=== PATIENT | female | born 1995 | race Caucasian/White ===

== ENCOUNTER 2020-03-06 14:20 | Emergency (ER) | payer MEDICAID, OTHER ==
[~2020-03-06] VITALS: Ht 165.1 cm; Wt 108.9 kg
[~2020-03-06 14:20] MED LIST: ETHINYL ESTRADIOL PO; NORGESTIMATE PO
--- NOTE | 2020-03-06 14:20 | NUR ---
Patient to ER bed 3 to gown for evaluation. Side rails up.
[2020-03-06 14:38] VITALS: BP_SYST 124
--- NOTE | 2020-03-06 14:55 | NUR ---
Pt came to ER for R hip pain sharp burning pain radiating down leg. Pt states pain is better when she is standing, increases when she sits or lays down. Currently standing at bedside, awaiting MD, no other complaints
--- NOTE | 2020-03-06 15:04 | NUR ---
ER at bedside examining patient.
[2020-03-06] MEDS ORDERED: IBUPROFEN 600 MG TABLET PO ONE (15:30)
--- NOTE | 2020-03-06 15:30 | NUR ---
Administered Motrin PO as ordered by Dr. Bennett. Patient tolerated the medications well. See eMAR for details.
[2020-03-06 15:37] VITALS: BP_SYST 124
--- NOTE | 2020-03-06 15:37 | NUR ---
Patient given written and verbal discharge instructions and verbalizes understanding. ER MD discussed with patient the results and treatment provided. Patient in stable condition. ID arm band removed. Rx of Motrin given. Patient educated on pain management and to follow up with PMD. Pain Scale 3/10. Opportunity for questions provided and answered. Medication side effect fact sheet provided.
== END 2020-03-06 15:37 | disposition home or self-care (01) ==
LOC: SED 14:20
DX: M54.6 Pain in thoracic spine (principal)
CPT/HCPCS: 81002; 81025; 99282

== ENCOUNTER 2020-12-16 18:16 | Emergency (ER) | payer MEDICAID ==
[~2020-12-16] VITALS: Ht 165.1 cm; Wt 113.4 kg
[2020-12-16 18:25] VITALS: BP_SYST 146
--- NOTE | 2020-12-16 18:25 | NUR ---
PT TO BED 7 FOR EVALUATION. REPORT GIVEN TO CARI SAMPSON WHO WILL ASSUME CARE.
--- NOTE | 2020-12-16 18:35 | NUR ---
Pt walked in to ER with c/o abdominal pain 3/10 and multiple episodes of diarrhea x3 days. Denies fever or n/v at this time. V/S stable, no acute distress noted.
--- NOTE | 2020-12-16 19:10 | NUR ---
Assumed care of patient at change of shift. Introduced self to patient, positioned for comfort. Bed to low position sr up. patient c/o multiple episodes of diarrhea w/ associated w/ abd pain. Recently received michelle/michelle covid vaccine shot (1st one). Patient resting quietly. No acute distress noted. Vital signs within normal range. Continue to monitor.
--- NOTE | 2020-12-16 19:20 | NUR ---
# 20 gauge angiocath placed to right forearm. Use of asceptic technique. Opsite placed over site. Blood return noted. Blood for lab drawn from site. Flushed with 10 cc of normal saline. No evidence of infiltration noted. Patient tolerated well. Urine specimen collected and analyzed in lab. Results pending to be given to HAILEY BEARD.
[2020-12-16] MEDS ORDERED: MAG HYDROX/AL HYDROX/SIMETH 30 ML, LIDOCAINE VISCOUS 2% 15ML (PO) 15 ML, DICYCLOMINE HC... PO ONE ×3 (19:45)
[2020-12-16] MEDS ORDERED: MAG-AL HYDROX/SIMETH 30 ML UDC ONE (19:56)
[2020-12-16] MEDS ORDERED: DICYCLOMINE HCL 10 MG/5 ML SOLUTION ONE (19:56)
[2020-12-16 20:09] LABS: BILIRUBIN,URINE NEGATIVE (NEGATIVE); BLOOD, URINE NEGATIVE (NEGATIVE); CLARITY/URINE TURBID (CLEAR); COLOR,URINE YELLOW (YELLOW); GLUCOSE,URINE NEGATIVE (NEGATIVE); KETONES,URINE NEGATIVE (NEGATIVE); LEUKOCYTE ESTERASE ,URINE NEGATIVE (NEGATIVE); NITRITE, URINE NEGATIVE (NEGATIVE); PROTEIN URINE NEGATIVE (NEGATIVE); UROBILINOGEN,URINE 0.2 (0.2-1.0)
[2020-12-16 20:12] LABS: BASOPHILS % (AUTO) 0.6 % (0.0-2.0); EOSINOPHILS # (AUTO) 0.1 K/uL (0.0-0.4); EOSINOPHILS % (AUTO) 1.6 % (0.0-4.0); HEMATOCRIT 39.9 % (36-48); HEMOGLOBIN 13.3 g/dL (12.0-16.0); LYMPHOCYTES # (AUTO) 1.6 K/uL (1.0-5.5); LYMPHOCYTES % (AUTO) 21.6 % (20.5-51.5); MEAN CORPUSCULAR HEMOGLOBIN 31 pg (27-31); MEAN CORPUSCULAR HGB CONC 33 % (32-36); MEAN CORPUSCULAR VOLUME 92 fL (79.0-98.0); MONOCYTES # (AUTO) 0.8 K/uL (0.0-1.0); MONOCYTES % (AUTO) 10.3 % (1.7-9.3); NEUTROPHILS # (AUTO) 4.8 K/uL (1.8-7.7); NEUTROPHILS % (AUTO) 65.9 % (40.0-70.0); PLATELET COUNT (AUTO) 284 K/uL (130-430); RED BLOOD CELL COUNT(AUTO) 4.32 MIL/uL (4.2-6.2); RED CELL DISTRIBUTION WIDTH 13.5 % (9.0-15.0); WHITE BLOOD COUNT (AUTO) 7.3 K/uL (4.8-10.8)
[2020-12-16] MEDS ORDERED: LIDOCAINE VISCOUS 2%, 15 ML UDC ONE (20:13)
--- NOTE | 2020-12-16 20:17 | NUR ---
Medicated w/ "GI Cocktail" per MD orders. IVF infusing with no s/s of infiltration at this time. Will cont to monitor and observe for any adverse reaction.
[2020-12-16 20:51] LABS: ALBUMIN 3.7 g/dL (3.4-4.8); CREATININE 0.83 mg/dL (0.55-1.30); POTASSIUM 3.5 mmol/L (3.5-5.1); TOTAL BILIRUBIN 0.2 mg/dL (0.0-1.0)
[2020-12-16 20:53] LABS: BACTERIA,URINE FEW /HPF (None Seen); RBC,URINE NONE SEEN /HPF (0-3); WBC,URINE 0-3 /HPF (0-3)
[2020-12-16 20:54] LABS: MUCUS,URINE 2+ /LPF (None Seen); URINE AMORPHOUS URATE 3+ /HPF (None Seen)
[2020-12-16] MEDS ORDERED: OMEP20CA15 PO (21:31)
[2020-12-16] MEDS ORDERED: ONDA-8 TL (21:31)
--- NOTE | 2020-12-16 21:40 | NUR ---
Patient given written and verbal discharge instructions and verbalizes understanding. ER MD discussed with patient the results and treatment provided. Patient in stable condition. ID arm band removed. IV catheter removed intact and dressing applied, no active bleeding. Rx of omeprazole and zofra given. Patient educated on pain management and to follow up with PMD. Pain Scale 0. Opportunity for questions provided and answered. Medication side effect fact sheet provided. Addendum: 12/16/20 at 2142 by [email or web address] patient unable to provide stool sample in ER but will go home obtain stool sample then return to ER.
[2020-12-16 21:41] VITALS: BP_SYST 142
== END 2020-12-16 21:40 | disposition home or self-care (01) ==
LOC: SED 18:16
DX: K29.00 Acute gastritis without bleeding (principal); A08.8 Other specified intestinal infections; Z88.2 Allergy status to sulfonamides; Z88.1 Allergy status to other antibiotic agents; Z79.899 Other long term (current) drug therapy
CPT/HCPCS: 36415; 80053; 81000; 83690; 85025; 93005; 99284; J2001

== ENCOUNTER 2022-08-18 14:11 | Emergency (ER) | payer MEDICAID ==
[~2022-08-18] VITALS: Ht 165.1 cm; Wt 119.7 kg
[2022-08-18 14:11] VITALS: BP_SYST 125
[~2022-08-18 14:11] MED LIST changes: +OMEP20CA15 PO; +ONDA-8 TL
[2022-08-18 16:19] LABS: BASOPHILS # (AUTO) 0.1 K/uL (0.0-0.2); BASOPHILS % (AUTO) 0.5 % (0.0-2.0); EOSINOPHILS # (AUTO) 0.2 K/uL (0.0-0.4); EOSINOPHILS % (AUTO) 1.9 % (0.0-4.0); HEMATOCRIT 31.9 % (36-48); HEMOGLOBIN 10.8 g/dL (12.0-16.0); LYMPHOCYTES # (AUTO) 2.9 K/uL (1.0-5.5); LYMPHOCYTES % (AUTO) 28.2 % (20.5-51.5); MEAN CORPUSCULAR HEMOGLOBIN 30 pg (27-31); MEAN CORPUSCULAR HGB CONC 34 % (32-36); MEAN CORPUSCULAR VOLUME 88 fL (79.0-98.0); MONOCYTES # (AUTO) 0.7 K/uL (0.0-1.0); MONOCYTES % (AUTO) 6.5 % (1.7-9.3); NEUTROPHILS # (AUTO) 6.5 K/uL (1.8-7.7); NEUTROPHILS % (AUTO) 62.9 % (40.0-70.0); PLATELET COUNT (AUTO) 327 K/uL (130-430); RED BLOOD CELL COUNT(AUTO) 3.61 MIL/uL (4.2-6.2); RED CELL DISTRIBUTION WIDTH 13.8 % (9.0-15.0); WHITE BLOOD COUNT (AUTO) 10.4 K/uL (4.8-10.8)
[2022-08-18 16:26] LABS: CALCIUM 8.3 mg/dL (8.4-11.0); CREATININE 0.64 mg/dL (0.55-1.30)
[2022-08-18 16:29] LABS: ALBUMIN 3.6 g/dL (3.4-4.8); TOTAL BILIRUBIN 0.3 mg/dL (0.0-1.0)
== END 2022-08-18 16:10 | disposition home or self-care (01) ==
LOC: SED 14:11
DX: N92.0 Excessive and frequent menstruation with regular cycle (principal); N93.9 Abnormal uterine and vaginal bleeding, unspecified; Z88.1 Allergy status to other antibiotic agents; Z88.2 Allergy status to sulfonamides; Z79.899 Other long term (current) drug therapy
CPT/HCPCS: 36415; 76856-TC; 80053; 85025; 86886; 86900; 86901; 99284

== ENCOUNTER 2023-10-03 00:10 | Emergency (ER) | payer MEDICAID, OTHER ==
[~2023-10-03] VITALS: Ht 165.1 cm; Wt 115.7 kg
[2023-10-03 00:14] VITALS: BP_SYST 133; PULSE 96; RESP 20; TEMP 97.4; O2SAT 99
[2023-10-03 01:25] LABS: BASOPHILS # (AUTO) 0.4 K/uL (0.0-0.2); BASOPHILS % (AUTO) 3.4 % (0.0-2.0); EOSINOPHILS # (AUTO) 0.3 K/uL (0.0-0.4); EOSINOPHILS % (AUTO) 2.6 % (0.0-4.0); HEMATOCRIT 36.8 % (36-48); HEMOGLOBIN 12.2 g/dL (12.0-16.0); LYMPHOCYTES # (AUTO) 2.2 K/uL (1.0-5.5); LYMPHOCYTES % (AUTO) 18.3 % (20.5-51.5); MEAN CORPUSCULAR HEMOGLOBIN 29 pg (27-31); MEAN CORPUSCULAR HGB CONC 33 % (32-36); MEAN CORPUSCULAR VOLUME 87 fL (79.0-98.0); MONOCYTES # (AUTO) 0.4 K/uL (0.0-1.0); MONOCYTES % (AUTO) 3.7 % (1.7-9.3); NEUTROPHILS # (AUTO) 8.7 K/uL (1.8-7.7); PLATELET COUNT (AUTO) 348 K/uL (130-430); RED BLOOD CELL COUNT(AUTO) 4.22 MIL/uL (4.2-6.2); RED CELL DISTRIBUTION WIDTH 14.6 % (9.0-15.0); WHITE BLOOD COUNT (AUTO) 12.1 K/uL (4.8-10.8)
[2023-10-03 01:35] LABS: CREATININE 0.68 mg/dL (0.55-1.30); POTASSIUM 3.8 mmol/L (3.5-5.1)
[2023-10-03 02:11] LABS: BILIRUBIN,URINE NEGATIVE (NEGATIVE); BLOOD, URINE NEGATIVE (NEGATIVE); CLARITY/URINE CLEAR (CLEAR); COLOR,URINE YELLOW (YELLOW); GLUCOSE,URINE NEGATIVE (NEGATIVE); KETONES,URINE TRACE (NEGATIVE); LEUKOCYTE ESTERASE ,URINE NEGATIVE (NEGATIVE); NITRITE, URINE NEGATIVE (NEGATIVE); PROTEIN URINE NEGATIVE (NEGATIVE)
[2023-10-03 02:23] LABS: URINE AMPHETAMINE POSITIVE (NEG <=500)
[2023-10-03 02:24] LABS: BARBITURATE, URINE NEGATIVE (NEG <=200); BENZODIAZEPINE, URINE NEGATIVE (NEG <=150); CANNABINOID, URINE NEGATIVE (NEG <=50); COCAINE, URINE NEGATIVE (NEG <=150); METHAMPHETAMINES SCREEN,URINE NEGATIVE (NEG <=500); OPIATE, URINE NEGATIVE (NEG <=100); PHENCYCLIDINE SCREEN,URINE NEGATIVE (NEG <=25); UR TRICYCLIC ANTIDEPRESSANTS NEGATIVE (NEG <=300); URINE METHADONE NEGATIVE (NEG <=200); URINE OXYCODONE SCREEN NEGATIVE (NEG <=100)
[2023-10-03 02:45] VITALS: TEMP 98; O2SAT 99
[2023-10-03 03:30] VITALS: BP_SYST 144; PULSE 83; RESP 18
== END 2023-10-03 02:45 | disposition home or self-care (01) ==
LOC: SED 00:10
DX: R06.02 Shortness of breath (principal); F15.129 Other stimulant abuse with intoxication, unspecified; Z88.1 Allergy status to other antibiotic agents; Z88.2 Allergy status to sulfonamides; Z79.899 Other long term (current) drug therapy
CPT/HCPCS: 36415; 80048; 80307; 81001; 81003; 81025; 83605; 85025; 85379; 87040; 93005; 99284

== ENCOUNTER 2023-12-20 22:09 | Emergency (ER) | payer OTHER ==
[~2023-12-20] VITALS: Ht 165.1 cm; Wt 115.7 kg
[2023-12-20 22:14] VITALS: BP_SYST 123; PULSE 86; RESP 18; TEMP 96.8; O2SAT 97
[2023-12-21 00:12] VITALS: BP_SYST 123; PULSE 86; RESP 18; TEMP 96.8; O2SAT 97
== END 2023-12-21 00:12 | disposition home or self-care (01) ==
LOC: SED 22:09
DX: S09.8XXA Other specified injuries of head, initial encounter (principal); Z88.1 Allergy status to other antibiotic agents; Z88.2 Allergy status to sulfonamides; Z79.899 Other long term (current) drug therapy; W18.39XA Other fall on same level, initial encounter; Y93.89 Activity, other specified; Y92.89 Other specified places as the place of occurrence of the external cause; Y99.8 Other external cause status
CPT/HCPCS: 70450-TC; 81025; 99284